=== PATIENT | female | born 1980 | race African-American/Black ===

== ENCOUNTER 2017-07-20 05:32 | Inpatient (IN) | payer OTHER ==
[~2017-07-20] VITALS: Ht 170.2 cm; Wt 98.5 kg
--- NOTE | ~2017-07-20 | CR72 ---
[facility] A Service of [facility] & [facility] RADIOLOGY TEXT RESULTS PATIENT: ZULEMA SAMPSON LOCATION: [facility] 570-01 : [birth year] UNIT #: [id number] AGE: [address]: Aquilino William MD SEX: F ORDER DR: [id number] [facility] [address] [place], [place] [address] [id number] I MR#: [id number] Acc #: [id number] NAME: ZULEMA SAMPSON : 1980 SEX: F STUDY DATE/TIME: 07/20/2017 7:16 UNIT: CEDOF ROOM: 15710 STUDY DESCRIPTION: CR Chest Single View Portable Attending Physician: Aquilino William M.D. Ordering Physician: Kalen Gasca D.O. Primary Care Physician: Katharina Doherty M.D. MEDICAL IMAGING REPORT This report is preliminary unless electronic signature is present EXAM Chest x-ray Single View Portable HISTORY Chest pain starting today, left sided, with a history of coronary artery disease and essential hypertension, shortness of breath. FINDINGS Single final portable view of the chest timed 07:16 on 07/20/2017 is compared to the film from 01/08/2017. There is somewhat globular cardiac silhouette enlargement increased from previous study. This can be due to dilated cardiomyopathy and/or pericardial effusion. Please evaluate further clinically. There is mild vascular congestion and interstitial edema centrally. Lung volumes are low. Small amount of airspace disease at the right base, likely atelectasis. Followup to clear is recommended. No pleural effusion or pneumothorax is suspected. IMPRESSION 1. Interval increase in cardiomediastinal silhouette size. The cardiac silhouette is somewhat globular in configuration, most often associated with dilated cardiomyopathy and/or pericardial effusion. Please evaluate further clinically. 2. Mild vascular congestion and interstitial edema. Lung volumes are low and there is a small amount of airspace disease at the right base which is probably atelectasis but a follow up film is recommended to ensure resolution. Dictated by... Nadege Vitale M.D. [facility] A Service of [facility] & [facility] RADIOLOGY TEXT RESULTS PATIENT: ZULEMA SAMPSON LOCATION: [facility] 570- : [birth year] UNIT #: [id number] AGE: [address]: Aquilino William MD SEX: F ORDER DR: THIS IS AN ELECTRONICALLY VERIFIED REPORT Nadege Vitale M.D. at 07/20/2017 5:20 PM SAC/kit TD: 07/20/2017 13:54 JOB #: [id number] MEDICAL IMAGING REPORT Page 1 of 1 COPY
--- NOTE | ~2017-07-20 | EKG ---
PATIENT: ZULEMA SAMPSON UNIT #: [id number] Ventricular Rate: 68 BPM Atrial Rate: 68 BPM P-R Interval: 144 ms QRS Duration: 82 ms Q-T Interval: 450 ms QTC Calculation(Bezet): 478 ms P [place]: 72 degrees Calculated R [place]: -45 degrees Calculated T [place]: -4 degrees Diagnosis Line: Sinus rhythm with occasional Premature ventricular Diagnosis Line: complexes Diagnosis Line: Possible Left atrial enlargement Diagnosis Line: Left anterior fascicular block Diagnosis Line: Cannot rule out Inferior infarct (masked by Diagnosis Line: fascicular block?) , age undetermined Diagnosis Line: Cannot rule out Anterior infarct , age Diagnosis Line: undetermined Diagnosis Line: Abnormal ECG Diagnosis Line: No previous ECGs available Diagnosis Line: Confirmed by YAMIL MERA MD ([id number]) on Diagnosis Line: 07/21/2017 12:31:39 PM INTERPRETING MD: EDE HEATH
--- NOTE | ~2017-07-20 | EKG ---
PATIENT: ZULEMA SAMPSON UNIT #: [id number] Ventricular Rate: 65 BPM Atrial Rate: 65 BPM P-R Interval: 150 ms QRS Duration: 86 ms Q-T Interval: 416 ms QTC Calculation(Bezet): 432 ms P [place]: 60 degrees Calculated R [place]: -39 degrees Calculated T [place]: -22 degrees Diagnosis Line: Normal sinus rhythm Diagnosis Line: Possible Left atrial enlargement Diagnosis Line: Left axis deviation Diagnosis Line: Possible Inferior infarct (cited on or before Diagnosis Line: 20-JUL-2017) Diagnosis Line: Abnormal ECG Diagnosis Line: When compared with ECG of 20-JUL-2017 05:41, Diagnosis Line: (unconfirmed) Diagnosis Line: Premature ventricular complexes are no longer Diagnosis Line: Present Diagnosis Line: Confirmed by AVTAR HENSLEY MD ([id number]) on 07/21/2017 Diagnosis Line: 5:27:15 AM INTERPRETING MD: AYDEN HEATH
--- NOTE | ~2017-07-20 | CO ---
Unit #: [id number] #: [id number] Patient: DAVE SAMPSON [id number] [address] [place], [place] [address] [id number] I MR#: [id number] NAME: DAVE SAMPSON ROOM: 570 Age: 37 Sex: F Admission Date: 07/20/2017 : 1980 Attending Physician: Aquilino William M.D. Primary Care Physician: Katharina Doherty M.D. Consultation Date: 07/21/2017 CONSULTATION REPORT REASON FOR CONSULTATION Schizophrenia. HISTORY OF PRESENT ILLNESS Ms. Dee is a 37-year-old female, seen in the emergency room, bed 4 on 07/20/2017. The patient dressed in hospital attire, seemed confused, guarded and paranoid. Reports diagnosed with schizophrenia and on Seroquel. The patient reports that she was admitted with chest pain. The patient has a history of previous treatment at [facility], last seen in 05/2016. The patient also has a history of cocaine abuse disorder, last discharge on no psychotropic medication, but the patient reports that she takes Seroquel. The patient was tried on Zyprexa in the past. Currently, denied any suicidal or homicidal ideation, but disorganized thought process and behavior. The patient's urine tox was positive for cocaine. PAST PSYCHIATRIC HISTORY Remarkable for history of schizophrenia, psychosis, depression, and cocaine abuse. MEDICAL HISTORY Remarkable for history of coronary artery disease, hypertension, hyperlipidemia, schizophrenia, posttraumatic stress disorder. MEDICATION HISTORY Home medication, none. ALLERGIES Morphine, acetaminophen, banana questionable. FAMILY HISTORY AND SOCIAL HISTORY The patient currently homeless, poor support system. No history of any abuse. History of substance abuse, drug of choice cocaine. REVIEW OF SYSTEMS Complete review of systems is unremarkable except as mentioned above. MENTAL STATUS EXAMINATION The patient's vital signs; blood pressure of 125/70, heart rate 78, respirations 18, temperature 98.4, and oxygen saturation 100%. General examination; the patient dressed in hospital gown. Attention span and concentration, poor. Speech, disorganized. Oriented in place and person. Mood and affect, labile. Thought process; circumstantial, guarded. Thought content, guarded and paranoid, but denied any thoughts of harming Unit #: [id number] #: [id number] Patient: DAVE SAMPSON self or others. Recent and remote memory, poor. Language, fair. Fund of knowledge, fair. Insight and judgment, fair to slightly impaired. DIAGNOSES Psychiatric: Psychosis, F29.0; rule out schizophrenia, chronic paranoid type, F20.0; cocaine use disorder, severe, F14.20. Secondary diagnosis: Deferred. Medical diagnosis: Please refer to H and P. Stressors: Psychosocial stressor, homelessness. ASSESSMENT/PLAN 1. Supportive psychotherapy and psychoeducation provided to the patient. 2. Educated about benefits and side effects of medication and course and prognosis of illness. 3. Advised no medication at this time as the patient is coming in for chest pain. Advised to hold consider medication after her cardiac testing, possibly will go for cardiac cath tomorrow. Please feel free to call if any questions, telephone #[phone]. Dictated by... Luis F Umana M.D. MONICO/alisa TD: 07/21/2017 19:37 JOB #: [id number] CONSULTATION REPORT Page 1 of 1 X Luis F Umana MD X CONSULTATION REPORT
--- NOTE | ~2017-07-20 | DS ---
Unit #: [id number] #: [id number] Patient: DAVE SAMPSON [id number] [address] [place], [place] [address] [id number] I MR#: [id number] NAME: DAVE SAMPSON ROOM: 570 Age: 37 Sex: F Admission Date: 07/20/2017 : 1980 Discharge Date: 07/22/2017 Attending Physician: Aquilino William M.D. Primary Care Physician: Katharina Doherty M.D. DISCHARGE SUMMARY DISCHARGE DIAGNOSES 1. Chest pain. 2. Previous history of having PCI and stents to the RCA in 2004. 3. Previous history of PCI and stents to the RCA in 2014, three stents to the RCA back in 2014. 4. Status post cardiac cath by Dr. William on July 21, 2017, which revealed RCA artery is occluded near its origin and with the distal vessel filling by retrograde collaterals, LV EF of 50%, status post unsuccessful attempt on proximal RCA with PCI, the guidewire could not cross the total occlusion. Recommendations: Continue on maximum medical therapy with the addition of long-acting nitrates, aspirin, SASHA inhibitor, and beta jr. Continue risk factor management with cessation of nicotine and blood pressure control. 5. Hypertension. 6. Hyperlipidemia. 7. Chronic anemia. 8. History of schizophrenia. 9. Nicotine abuse. 10. Alcohol abuse. 11. Cocaine abuse. 12. Homeless. 13. Noncompliance. DISCHARGE MEDICATIONS 1. Metoprolol 12.5 mg p.o. twice daily. 2. Aspirin 81 mg p.o. daily. 3. Atorvastatin 20 mg p.o. once daily. 4. Imdur ER 30 mg p.o. daily. 5. Nitrostat 0.4 mg sublingual every five minutes x3 p.r.n. for chest pain. HOSPITAL COURSE This is a 37-year-old -[place] female, who came to the emergency room with recurrent chest pain. Patient has not had any of her medications over the past year. Patient came in with recurrent chest pain. She explained it as being midsternal and had pain radiating to the upper back under her scapula region. It was coming and going for a few weeks. As mentioned, she has not taken any medication for about a year. She does smoke a pack of cigarettes a day, drinks six to eight beers a day, and uses cocaine. She has a history of schizophrenia and also has been off all of her home medications. She is homeless. She lives in a tent off [address] not too far from the hospital. vp marketing services and skin was asked to see the patient and they know her from dealing with her previous admissions. The patient had refused any assistance to live in a Unit #: [id number] #: [id number] Patient: DAVE SAMPSON [facility]. She has a web content & social media manager on her case but she does not show up for appointments. She has multiple appointments at the [facility]. She has not followed up there either. Her web content & social media manager that is on her case is going to contact her before she is discharged and/or come see her while she is in the hospital to try to arrange working on getting her permanent and temporary housing. With her symptoms suggestive of ischemia, angina, and with noncompliance with her medication, Dr. William performed a heart catheterization. He had an unsuccessful attempt at PCI in the proximal RCA which was chronically total occluded. The PDA branch and the PLV branch is filled by retrograde [id number] collaterals which are from the LAD and circumflex, which are free of any fixed stenosis. Dr. William recommends that the patient continue on maximum medical therapy with the addition of long-acting nitrates, aspirin, SASHA inhibitor, and possibility beta blockers, so continue risk factor management with cessation of nicotine and blood pressure control is recommended. LV EF of 50% on cardiac cath. Patient's right radial wrist cath site is without oozing, hematoma, or thrill. Patient did have a near syncopal episode last evening. Her blood pressure dropped to 99/53. One dose of her metoprolol 25 mg was held, so this morning her blood pressure is improved and she will decrease the dose of beta jr down to 12.5 mg twice daily. There is no evidence of any signs or symptoms of acute congestive heart failure. Patient had a fasting lipid profile and her LDL is 115, so will start on a statin. Advised the patient to stop smoking, alcohol and cocaine abuse. On day of discharge, the patient is in stable condition. PHYSICAL EXAMINATION VITAL SIGNS: Blood pressure 100/56, respirations 16, heart rate 60 with temperature 98.4, O2 saturations 100% on room air. HEART: S1, S2. Regular rate and rhythm. LUNGS: Diminished, otherwise clear. ABDOMEN: Soft, nontender. EXTREMITIES: Pedal pulses are palpable. No pedal edema. Right radial wrist is without oozing, hematoma, or thrill. DIAGNOSTIC STUDIES LABORATORY: Latest laboratory diagnostic data: Glucose 79, BUN 9, creatinine 0.8, eGFR 107.7, sodium 138, potassium 4, chloride 106, CO2 of 27, calcium 8.8. Fasting lipid profile: Cholesterol 175, triglycerides 62, LDL 115, HDL 48. TSH 1.02. WBC 7.9, hemoglobin 10.4, hematocrit 38.3, and platelets 450,000. Urine tox screen was positive for cocaine. CARDIOVASCULAR: EKG: Telemetry shows normal sinus rhythm, sinus bradycardia, heart rate 58-68. PLAN/INSTRUCTIONS The patient will be discharged home today and will followup with the [facility]. The web content & social media manager will get that appointment scheduled. The web content & social media manager had a long discussion with the patient and she has a web content & social media manager that is on her case. His name is Rivas and he will be getting a hold of the patient either before she leaves the hospital or right after discharge for instructions. She will need to follow up with him as outpatient. The plan is to try to help arrange the patient for temporary and long-term housing needs. The patient is getting new prescriptions for metoprolol, isosorbide, atorvastatin, and Nitrostat. They will be filled here at [facility] and she will receive them before she leaves today. The patient has been instructed to follow with Dr. William on September 08, at 2:45 p.m. Continue to encourage the patient to quit smoking, drinking alcohol, and using cocaine. Smoking cessation Unit #: [id number] #: [id number] Patient: DAVE SAMPSON information provided to patient. Dictated by... Sherie Castano, Esteban.P.R.N. for Aquilino William M.D. DENNIS/mireille TD: 07/22/2017 15:02 JOB #: [id number] DISCHARGE SUMMARY Page 1 of 1 X Sherie Castano APRN DISCHARGE SUMMARY
--- NOTE | ~2017-07-20 | EKG ---
PATIENT: ZULEMA SAMPSON UNIT #: [id number] Ventricular Rate: 53 BPM Atrial Rate: 53 BPM P-R Interval: 156 ms QRS Duration: 82 ms Q-T Interval: 460 ms QTC Calculation(Bezet): 431 ms P [place]: 58 degrees Calculated R [place]: -37 degrees Calculated T [place]: -22 degrees Diagnosis Line: Sinus bradycardia with occasional Premature Diagnosis Line: ventricular complexes Diagnosis Line: Left axis deviation Diagnosis Line: T wave abnormality, consider lateral ischemia Diagnosis Line: Abnormal ECG Diagnosis Line: When compared with ECG of 20-JUL-2017 17:27, Diagnosis Line: Premature ventricular complexes are now Present Diagnosis Line: Inverted T waves have replaced nonspecific T wave Diagnosis Line: abnormality in Anterior leads Diagnosis Line: Confirmed by AVTAR HENSLEY MD ([id number]) on 07/21/2017 Diagnosis Line: 9:43:19 PM INTERPRETING MD: AYDEN HEATH
--- NOTE | ~2017-07-20 | CO ---
Unit #: [id number] #: [id number] Patient: KARAN WINSTON [id number] [address] [address] [id number] I MR#: [id number] NAME: KARAN WINSTON ROOM: 570 Age: 37 Sex: F Admission Date: 07/20/2017 : 1980 Attending Physician: Aquilino William M.D. Primary Care Physician: Katharina Doherty M.D. Consultation Date: 07/22/2017 CONSULTATION REPORT REASON FOR CONSULTATION Followup. DISCUSSION Ms. Karan Winston is a 37-year-old female, seen in room 570, bed 1, on 07/22/2017 at [facility]. The patient reports that she is feeling better. Denied any hallucination, but history of hallucination and depression. The patient reports depression mild, currently off from her psychotropic medication. The patient was admitted with chest pain. The patient denied any use of any drugs or alcohol, but her urine drug screen was positive for cocaine. The patient was agreeable to follow up in outpatient program, CD-IOP program at [facility] upon discharge. The patient was last treated at [facility] in 2016 diagnosed with mood disorder, schizophrenia by history, opiate abuse, cocaine abuse. The patient currently denied any suicidal or homicidal ideation or any psychotic symptom. The patient's vital signs; temperature 98.4, pulse 62, respirations 16, blood pressure 98/57, oxygen saturation 100%. REVIEW OF SYSTEMS Complete review of systems is unremarkable. MENTAL STATUS EXAMINATION The patient is casually dressed. Attention span and concentration, fair. Oriented in time, place, and person. Mood and affect, labile. Speech, monotone. Thought process, concrete. Denied any thoughts of harming self or others or any psychotic symptom, but feeling sad and depressed. Recent and remote memory, fair. Language, intact. Fund of knowledge, fair. Insight and judgment, fair to slightly impaired. DIAGNOSES Psychiatric: Mood disorder, not otherwise specified, F32.9; schizophrenia by history, F20.0; cocaine use disorder, severe, F14.20. ASSESSMENT AND PLAN 1. Supportive psychotherapy and psychoeducation provided to the patient. 2. Educated about benefits and side effects of medication and course and prognosis of illness. 3. Advised the patient to follow up in CD-IOP program at [facility] upon discharge and given crisis line #[phone]. Dictated by..Martha Umana M.D. Unit #: [id number] #: [id number] Patient: KARAN WINSTON MONICO/alisa TD: 07/22/2017 18:20 JOB #: [id number] CONSULTATION REPORT Page 1 of 1 X Luis F Umana MD X CONSULTATION REPORT
--- NOTE | ~2017-07-20 | CO ---
Unit #: [id number] #: [id number] Patient: KARAN WINSTON [id number] [address] [address] [id number] I MR#: [id number] NAME: KARAN WINSTON ROOM: 570 Age: 37 Sex: F Admission Date: 07/20/2017 : 1980 Attending Physician: Aquilino William M.D. Primary Care Physician: Katharina Doherty M.D. Consultation Date: 07/21/2017 CONSULTATION REPORT REASON FOR CONSULTATION Followup. DISCUSSION Ms. Karan Winston is a 37-year-old female, seen in room 570 bed 1 on 07/21/2017. The patient was sleepy and drowsy, had a cardiac cath, had 100% blockade and unable to place a stent. The patient was drowsy. Denied any thoughts of harming self or others. Denied any hallucination, but withdrawn isolative, guarded, paranoid. The patient's vital signs; temperature 98.1, pulse 63, respirations 18, blood pressure 101/46, oxygen saturation 100%. REVIEW OF SYSTEMS Complete review of systems unremarkable except as mentioned above. MENTAL STATUS EXAMINATION General appearance, the patient dressed casually in hospital attire, lying comfortably in bed, seems somewhat drowsy and sleepy. Attention span and concentration, poor. Speech, slow in volume. Oriented in place and person. Mood and affect, labile. Thought process, circumstantial. Thought content, guarded and paranoid, but denied any thoughts of harming self or others. Recent and remote memory, poor. Language fair. Fund of knowledge, fair to slightly impaired. Insight and judgment, fair to slightly impaired. 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 ASSESSMENT AND PLAN 1. Supportive psychotherapy and psychoeducation provided to the patient. 2. Educated about benefits and side effects of medication and course and prognosis of illness. 3. We will await as the patient is still drowsy. If needed, consider resuming Zyprexa or consider transferring the patient to [facility] depending on the patient's progress. Please feel free to call if any questions, telephone #[phone]. Dictated by... Ida Dennison/alisa Unit #: [id number] #: [id number] Patient: KARAN WINSTON TD: 07/21/2017 18:16 JOB #: [id number] CONSULTATION REPORT Page 1 of 1 X Luis F Umana MD X CONSULTATION REPORT
--- NOTE | ~2017-07-20 | HP ---
Unit #: [id number] #: [id number] Patient: ZULEMA WINSTON [id number] [address] [place], [place] [address] [id number] MR#: [id number] NAME: ZULEMA WINSTON ROOM: 570 Age: 37 Sex: F Admission Date: 07/20/2017 : 1980 Attending Physician: Aquilino William M.D. Primary Care Physician: Katharina Doherty M.D. HISTORY AND PHYSICAL HISTORY OF PRESENT ILLNESS This is a 37-year-old female. Back in August 2015, patient had a non-STEMI that required stents placed to the distal RCA. A few months prior to that, she had PCI and bare-metal stent x3 to the RCA at the [facility]. Patient had an ejection fraction of 45% at that time. She has a history of schizophrenia with posttraumatic stress syndrome. Patient smokes a pack of cigarettes a day, drinks at least six beers a day, and uses cocaine. Her last usage was about a week ago. The patient has been noncompliant with taking any medication since last year. She came to the emergency room on this occasion with persistent chest pain. She said it is midsternal, and then sometimes she will have pain that radiates up into the upper back under her scapula region. She says it has been coming and going for a few weeks. Sometimes it can be worse with activity or exertion. She says when she had the pressure in her anterior chest wall this morning, it was a sharp pressure and persisted for a couple of hours. She got lightheaded and dizzy. With her past medical history of having stents and heart attack, she thought she needed to come in for further evaluation. She denied that the pain radiated up into her neck or bilateral jaws, shoulders, arms, or elbows. She denied any palpitations. She denied any syncopal episode. She has not had any cough, fever, or chills. No nausea, vomiting, or diarrhea. In the emergency room, patient's blood pressure was 125/68, heart rate 77, respirations 16, temperature 98, and O2 saturations 100% on room air. Patient's EKG showed normal sinus rhythm. She has occasional PVC, left atrial enlargement, left anterior fascicular block, likely inferior infarct, and poor R wave progression. Initial cardiac enzymes were negative. Patient's chest x-ray showed increase in cardiomediastinal silhouette size, mild vascular congestion, and interstitial edema. Initial labs: Patient's creatinine is 0.8 and potassium is down to 3.1. LFTs are normal. WBC is 8.7 and hemoglobin is 10, and looking back on previous H and P, she does have a history of anemia. Urine tox screen is positive for cocaine. Urinalysis is pending. Patient will be admitted with chest pain, rest and exertional angina, and for further evaluation. PAST MEDICAL HISTORY 1. Coronary artery disease. In May 2015, at [facility], had PCI and bare-metal stent x3 to the RCA. 2. In August 2015, non-STEMI, status post PCI and stent to the distal RCA. Other findings: The left main was normal, left circumflex normal, LAD was normal, and LVEF was 45%. Unit #: [id number] #: [id number] Patient: ZULEMA WINSTON 3. Hypertension. 4. Hyperlipidemia. 5. Schizophrenia. 6. Posttraumatic stress syndrome. 7. Reports that she had a PE back in 2016. 8. It has been dictated that she is not on a beta jr because of bradycardia in the past. 9. Nicotine abuse. 10. Alcohol abuse. 11. Polysubstance abuse. PAST SURGICAL HISTORY 1. Status post PCI and bare-metal stents x3 to the RCA in May 2015. 2. Status post PCI and drug-eluting stent in the distal RCA in August 2015. 3. Tonsillectomy. 4. Tubal ligation. HOME MEDICATIONS None. Looking back on her last discharge from here in May 2016, it showed that she was on Aspirin, Lipitor, Plavix, and medication for her schizophrenia. ALLERGIES Morphine, questionable acetaminophen, and questionable banana. SOCIAL HISTORY Patient reports she is homeless. She is living in a tent off [address]. She drinks six to seven beers a day. She uses cocaine and used it about seven days ago. She smokes a pack of cigarettes a day. FAMILY HISTORY Her grandmother raised her, and she of some type of heart attack a few years back. REVIEW OF SYSTEMS CONSTITUTIONAL: Denies fever or chills. No recent weight gain or weight loss. HEENT: Denies headache. Complained of dizziness with the chest pain, but it did not persist. No visual or hearing changes. No lymphadenopathy or thyromegaly. No difficulty swallowing. CARDIOVASCULAR: Chest pain present. Back scapular pain associated with the chest pain. Denies palpitations. Denies increased lower extremity edema. PULMONARY: Shortness of breath with the chest pain. Denies paroxysmal nocturnal dyspnea or orthopnea. GASTROINTESTINAL: Denies nausea, vomiting, diarrhea, or abdominal pain. NEUROLOGICAL: No focal weakness. PHYSICAL EXAMINATION GENERAL: Ms. Winston is a 37-year-old -[place] female in no acute respiratory distress. She is awake, alert, and oriented. VITAL SIGNS: Blood pressure is 125/68, heart rate 76, respirations 18, temperature 98, O2 saturations 100% on room air. NECK: Trachea midline. No thyromegaly or lymphadenopathy. Normal carotid upstrokes. No jugular venous distention. HEART: S1 and S2. Regular rate and rhythm. No clicks, murmurs, or rubs. LUNGS: Diminished, otherwise clear. Unit #: [id number] #: [id number] Patient: ZULEMA WINSTON ABDOMEN: Slightly obese, soft, nontender. EXTREMITIES: Pedal pulses are palpable. Trace of pedal edema. DIAGNOSTIC STUDIES LABORATORY: Glucose is 85, BUN 8, creatinine 0.8, eGFR 107.7, sodium 138, potassium 3.1, chloride 105, CO2 of 25, calcium 8.5, total protein 6.8, albumin 3.5, bilirubin total 0.6, AST 15, ALT 10, and alkaline phosphatase is 94. WBC 8.7, hemoglobin 10, hematocrit 31.5, and platelets 420,000. Initial cardiac enzymes: CK-MB is 1.2 and troponin less than 0.05; CK-MB is 1 and troponin less than 0.05. INR is 1. Urine tox screen is positive for cocaine. IMAGING: Chest x-ray shows interval increase in cardiomediastinal silhouette size. Mild vascular congestion and interstitial edema. CARDIOLOGY: EKG shows sinus rhythm with frequent premature ventricular complex, left atrial enlargement, left anterior fascicular block, probable inferior infarct, age undetermined, Q wave in V3 only, and poor R wave progression. IMPRESSION 1. Rest and exertional angina. 2. History of coronary artery disease with previous non-ST segment myocardial infarction and percutaneous coronary intervention and stents in the RCA in 2004. 3. Hypokalemia. 4. Hypertension. 5. Hyperlipidemia. 6. Chronic anemia. 7. History of schizophrenia. 8. Nicotine abuse. 9. Alcohol abuse. 10. Cocaine abuse. 11. Noncompliance. PLAN 1. Patient will be admitted for further evaluation. With patient's symptoms, her noncompliance with her medication, previous stent history, and multiple risk factors, Dr. William had a long discussion with the patient and will proceed with a heart catheterization to further evaluate. 2. Patient will be started on Lovenox therapeutic dosing, also aspirin and Brilinta. Give a loading dose of Brilinta 180 mg stat and then 90 mg p.o. twice daily. 3. Start on nitroglycerin paste, beta jr, Lipitor. 4. Will provide parameters for the metoprolol. 5. Obtain a fasting lipid profile and TSH and evaluate. 6. Patient's potassium is 3.1. Will supplement and repeat her level today and make final recommendations. 7. Encourage patient to completely quit drinking, smoking, and cocaine abuse. 8. Smoking cessation information provided to patient. 9. Will consult Dr. Umana to see the patient for her psychiatric meds and resuming her medications. 10. Encourage the patient on compliance to her treatment. 11. On exam, there do not appear to be any signs or symptoms of acute congestive heart failure. 12. Will continue patient besides the Lovenox and the Brilinta on an Unit #: [id number] #: [id number] Patient: ZULEMA WINSTON aspirin. 13. Discuss with patient the risks and benefits of cardiac cath. She has had it in the past, so she is familiar. Patient verbalized understanding and agrees to proceed. 14. Further recommendations pending per Dr. William. 1. Dictated by Sherie Castano A.P.R.N. for Ida Varela TD: 07/20/2017 16:59 JOB #: [id number] HISTORY AND PHYSICAL Page 1 of 1 X Sherie Castano APRN X HISTORY AND PHYSICAL
[~2017-07-20 05:32] MED LIST: ASPIRIN81 MG PO; ATORVASTATIN CA80 MG PO; EFFIENT10 MG PO; NO MEDICATIONS; PRINIVIL5 MG PO
[2017-07-20 07:54] LABS: BASOPHIL# 0.1 X10e3 (0-0.3); BASOPHIL% 0.9 % (0-2.5); EOSINOPHIL# 0.3 X10e3 (0-0.7); EOSINOPHIL% 3.2 % (0.0-7.0); HEMATOCRIT 31.5 % (35.0-45.0); LYMPHOCYTE# 2.7 X10e3 (1.0-3.5); MEAN CELL VOLUME 72.5 FL (83-96); MEAN CORPUSCULAR HGB CONC 31.7 g/dL (30-36); MEAN PLATELET VOLUME 6.9 FL (6.5-11.5); MONOCYTE# 0.5 X10e3 (0-1.0); MONOCYTE% 5.3 % (3.0-12.0); NEUTROPHIL# 5.2 X10e3 (1.5-7.1); NEUTROPHIL% 59.6 % (40-75); PLATELET COUNT 420 X10e3 (140-420); RED BLOOD COUNT 4.35 X10e (3.90-5.30); RED CELL DISTRIBUTION WIDTH 17.7 % (11.0-15.5); WHITE BLOOD COUNT 8.7 X10e3 (4.0-10.5)
[2017-07-20 07:56] LABS: DIFF IND NO
[2017-07-20 07:57] LABS: POC - CKMB 1.2 ng/mL (0.0-7.9); POC - TROPONIN <0.05 ng/mL (<=0.05)
[2017-07-20 08:16] LABS: PARTIAL THROMBOPLASTIN TIME 24.3 SECONDS (23.5-31.3); PROTHROMBIN TIME (PATIENT) 10.7 SECONDS (10.0-11.7)
[2017-07-20 08:29] LABS: ALBUMIN SERUM 3.5 g/dL (3.5-5.0); ALKALINE PHOSPHATASE 94 U/L (32-92); ALT (SGPT) 10 U/L (10-40); AST (SGOT) 15 U/L (10-42); BILIRUBIN,TOTAL 0.6 mg/dL (0.2-2.0); BLOOD UREA NITROGEN 8 mg/dL (9-23); CALCIUM SERUM 8.5 mg/dL (8.4-10.2); CARBON DIOXIDE 25 mmol/L (22-31); CHLORIDE 105 mmol/L (100-111); CREATININE SERUM 0.8 mg/dL (0.6-1.4); GLOM FILT RATE Estimated 107.7 mL/min (>60); GLUCOSE FASTING 85 mg/dL (70-110); POTASSIUM 3.1 mmol/L (3.5-5.1); PROTEIN TOTAL SERUM 6.8 g/dL (6.0-8.3); SODIUM 138 mmol/L (135-145)
[2017-07-20 08:30] LABS: BILIRUBIN, DIRECT <0.1 mg/dL (0.0-0.2); BILIRUBIN,INDIRECT 0.5 mg/dL (0.0-0.9)
[2017-07-20 09:38] LABS: POC - TROPONIN <0.05 ng/mL (<=0.05)
[2017-07-20] MEDS ORDERED: NO MEDICATIONS (10:03)
[2017-07-20 10:20] LABS: AMPHETAMINE NEG (NEG); BARBITURATES NEG (NEG); BENZODIAZEPINES NEG (NEG); COCAINE POS (NEG); MARIJUANA NEG (NEG); OPIATES NEG (NEG); TRICYCLIC ANTIDEPRESSANTS NEG (NEG); U METHADONE NEG (NEG)
[2017-07-20 16:31] LABS: %MB 1.5 % (0.0-4.0); MB 1.5 ng/ml
[2017-07-20 21:56] LABS: %MB 1.5 % (0.0-4.0); MB 1.2 ng/ml
[2017-07-21 05:10] LABS: HEMATOCRIT 35.2 % (35.0-45.0); HEMOGLOBIN 11.1 gm/dL (12.0-16.0); MEAN CELL VOLUME 71.9 FL (83-96); MEAN CORPUSCULAR HEMOGLOBIN 22.6 PG (28-34); MEAN CORPUSCULAR HGB CONC 31.4 g/dL (30-36); MEAN PLATELET VOLUME 6.9 FL (6.5-11.5); RED BLOOD COUNT 4.89 X10e (3.90-5.30); WHITE BLOOD COUNT 8.8 X10e3 (4.0-10.5)
[2017-07-21 05:42] LABS: PARTIAL THROMBOPLASTIN TIME 27.1 SECONDS (23.5-31.3); PROTHROMBIN TIME (PATIENT) 10.6 SECONDS (10.0-11.7)
[2017-07-21 06:13] LABS: BUN/CREATININE RATIO 13.75; CREATININE SERUM 0.8 mg/dL (0.6-1.4); GLOM FILT RATE Estimated 107.7 mL/min (>60); MAGNESIUM 1.8 mg/dL (1.6-3.0); POTASSIUM 4.2 mmol/L (3.5-5.1)
[2017-07-21 06:47] LABS: CHOLESTEROL 175 mg/dL (0-200); HDL CHOLESTEROL 48 mg/dL (35-95); LDL CHOLESTEROL 115 mg/dL ([, -130]); LDL/HDL RATIO 2 RATIO (0-4); TRIGLYCERIDES 62 mg/dL (10-160)
[2017-07-22 11:17] LABS: HEMATOCRIT 33.8 % (35.0-45.0); HEMOGLOBIN 10.4 gm/dL (12.0-16.0); MEAN CELL VOLUME 72.2 FL (83-96); MEAN CORPUSCULAR HEMOGLOBIN 22.3 PG (28-34); MEAN CORPUSCULAR HGB CONC 30.9 g/dL (30-36); MEAN PLATELET VOLUME 7.1 FL (6.5-11.5); RED BLOOD COUNT 4.68 X10e (3.90-5.30); RED CELL DISTRIBUTION WIDTH 18.1 % (11.0-15.5); WHITE BLOOD COUNT 7.9 X10e3 (4.0-10.5)
[2017-07-22 11:47] LABS: BUN/CREATININE RATIO 11.25; CALCIUM SERUM 8.8 mg/dL (8.4-10.2); CREATININE SERUM 0.8 mg/dL (0.6-1.4); GLOM FILT RATE Estimated 107.7 mL/min (>60)
[2017-07-22] MEDS ORDERED: ATORVASTATIN CA20 MG PO (16:47)
[2017-07-22] MEDS ORDERED: ASPIRIN81 MG PO (16:48)
[2017-07-22] MEDS ORDERED: METOPROLOL TAR25 MG PO (16:48)
[2017-07-22] MEDS ORDERED: ISOSORBIDE DINI30 MG PO (16:49)
[2017-07-22] MEDS ORDERED: NITROSTAT0.4 MG SL (16:50)
== END 2017-07-22 16:55 | disposition home or self-care (01) | DRG 287 ==
LOC: CED 05:32 → CEDOF 09:30 → C5C 09:30 → CED 10:07 → CEDOF 10:07 → C5C 15:48
PROVIDERS: Emergency Medicine; Internal Medicine Cardiovascular Disease; Nurse Practitioner
PROC: 4A023N7 Measurement of Cardiac Sampling and Pressure, Left Heart, Percutaneous Approach (ICD-10-PCS; principal; 2017-07-21)
PROC: B211YZZ Fluoroscopy of Multiple Coronary Arteries using Other Contrast (ICD-10-PCS; 2017-07-21)
PROC: B215YZZ Fluoroscopy of Left Heart using Other Contrast (ICD-10-PCS; 2017-07-21)
DX: I25.110 Atherosclerotic heart disease of native coronary artery with unstable angina pectoris (principal); F14.20 Cocaine dependence, uncomplicated; I10 Essential (primary) hypertension; F20.0 Paranoid schizophrenia; E78.5 Hyperlipidemia, unspecified; F43.10 Post-traumatic stress disorder, unspecified; F17.210 Nicotine dependence, cigarettes, uncomplicated; Z95.5 Presence of coronary angioplasty implant and graft; F10.10 Alcohol abuse, uncomplicated; Z98.51 Tubal ligation status; Z59.0 Homelessness; D64.89 Other specified anemias; Z91.14 Patient's other noncompliance with medication regimen; F39 Unspecified mood [affective] disorder; I25.2 Old myocardial infarction
CPT/HCPCS: 36415; 71010; 80048; 80061; 80076; 80307; 82550; 82553; 83735; 84443; 84484; 84703; 85025; 85027; 85347; 85610; 85730; 93005; 99152; 99153; 99285; C1769; C1887; C1894; J1644; J1650; J2250; J3010